=== PATIENT | male | born 1980 | race African-American/Black ===

== ENCOUNTER 2023-03-10 06:09 | Inpatient (IN) | payer MEDICAID ==
[2023-03-06 15:59] LABS: BILIRUBIN,URINE NEGATIVE (Neg); CLARITY,URINE SLIGHTLY CLOUDY (Clear); COLOR,URINE YELLOW (Yellow); GLUCOSE, URINE NEGATIVE (Neg); KETONES,URINE NEGATIVE (Neg); LEUKOCYTE ESTERASE ,URINE NEGATIVE (Neg); NITRITES, URINE NEGATIVE (Neg); OCCULT BLOOD,URINE TRACE-INTACT (Neg); PH,URINE 5.5 (4.8-8.0); PROTEIN,URINE TRACE mg/dl (Neg); UROBILINOGEN,URINE 0.2 E.U/dL (0.2-1.0)
[2023-03-06 16:00] LABS: BASOPHILS % (AUTO) 0.6 % (0-1); EOSINOPHILS # (AUTO) 0.2 X10'3 (0-0.9); EOSINOPHILS % (AUTO) 2.6 % (0-6); LYMPHOCYTES # (AUTO) 1.6 X10'3 (1.1-4.8); LYMPHOCYTES % (AUTO) 28.3 % (21-51); MEAN CORPUSCULAR HEMOGLOBIN 26.5 PG (27.0-31.0); MEAN CORPUSCULAR HGB CONC 32.7 g/dL (33.0-36.5); MEAN CORPUSCULAR VOLUME 80.8 FL (78-98); MONOCYTES # (AUTO) 0.5 X10'3 (0-0.9); MONOCYTES % (AUTO) 8.3 % (2-12); NEUTROPHILS # (AUTO) 3.5 X10'3 (1.8-7.7); NEUTROPHILS % (AUTO) 60.2 % (42-75); PRE OP HEMATOCRIT 43.3 % (42.0-52.0); PRE OP HEMOGLOBIN 14.2 g/dL (14.0-17.9); PRE OP PLATELET COUNT 224 X10'3 (140-440); PRE OP WHITE BLOOD COUNT 5.8 10'3 (4.8-10.8); RED BLOOD COUNT 5.35 X10'6 (4.70-6.10); RED CELL DISTRIBUTION WIDTH 15.2 % (11.5-14.5); UA COLLECTION TYPE CLN CATCH MIDSTREAM
[2023-03-06 16:18] LABS: MUCUS STRANDS FEW /LPF (Neg); SQUAMOUS EPITHELIAL CELL,UR MODERATE /LPF (FEW)
[2023-03-06 16:19] LABS: BACTERIA,URINE FEW /HPF (Neg); RBC,URINE 0-2 /HPF (0-2); WBC,URINE 0-4 /HPF (0-4)
[2023-03-06 16:20] LABS: ALKALINE PHOSPHATASE 99 IU/L (46-116); BLOOD UREA NITROGEN 11 MG/DL (7-18); BUN/CREATININE RATIO 8.8 (10.0-20.0); CALCIUM 9.6 MG/DL (8.5-10.1); CHLORIDE 103 MMOL/L (99-107); CREATININE 1.25 MG/DL (0.60-1.10); PRE OP ALT 23 U/L (30-65); PRE OP ANION GAP 8 (8-16); PRE OP AST 16 U/L (10-37); PRE OP BILIRUB, TOTAL 0.3 MG/DL (0.0-1.0); PRE OP GLUCOSE 110 MG/DL (70-104); PRE OP POTASSIUM 3.8 MMOL/L (3.4-5.1); PRE OP SODIUM 138 MMOL/L (135-145); TOTAL CARBON DIOXIDE 27.1 MMOL/L (24-32); eGFR 77 ML/MIN
[2023-03-10] VITALS (22 sets, daily range): BP systolic 121–165; BP diastolic 65–89; PULSE 67–98; RESP 14–28; TEMP 97.8–98.3; O2SAT 80–100
[~2023-03-10] VITALS: Ht 175.3 cm; Wt 163.1 kg
[~2023-03-10 06:09] MED LIST: ALLO300T35 PO; AMLO2.5T2 PO; ATOR-2 PO; LISI20TA28 PO; LORA10TA7 PO; PANT-47 PO; ceFAZolin inj. 3,000 MG in normal saline 100ml IV soln 100 ML IV ONE; cefazolin 2gm/D5W 100mL 100 ML IV ONE; famotidine 20mg tablet PO ONE
[2023-03-10] MEDS: ringers solution, lacted 1,000 ML IV SCH ×2 (06:40→16:02)
[2023-03-10] MEDS ORDERED: cloNIDine hcl/PF 100mcg/ml inj ONE (08:16)
[2023-03-10] MEDS ORDERED: midazolam 1 mg/ML 2ml injection ONE (08:21)
[2023-03-10] MEDS ORDERED: ondansetron/PF 4mg/2ml inj ONE (08:23)
[2023-03-10] MEDS ORDERED: LIDOcaine 1%/PF 5ML 10 MG/ML VIAL ONE (08:23)
[2023-03-10] MEDS ORDERED: rocuronium 10mg/ml inj IV ONE (08:23)
[2023-03-10] MEDS ORDERED: propofol inj 20 ML IV ONE (08:23)
[2023-03-10] MEDS ORDERED: fentaNYL /PF 50mcg/ml 5ml ampule ONE (08:23)
[2023-03-10] MEDS ORDERED: dexamethasone sod phosphate 4mg/ml inj. ONE (08:23)
[2023-03-10] MEDS ORDERED: glycopyrrolate 0.2mg/ml inj ONE (08:25)
[2023-03-10] MEDS ORDERED: neostigmine methylsulfate 1 MG/ML 10ml vial ONE (08:25)
[2023-03-10] MEDS ORDERED: bacitracin 15gm ointment TP ONE ×2 (09:03→11:41)
[2023-03-10] MEDS ORDERED: BUPIVAcaine/PF 2.5 mg/ml (0.25%) 30ml vial ONE (09:03)
[2023-03-10] MEDS ORDERED: ondansetron/PF 4mg/2ml inj IV PRN ×2 (09:05→12:55)
[2023-03-10] MEDS ORDERED: proCHLORperazine 10 MG/2 ml inj IV PRN (09:05)
[2023-03-10] MEDS ORDERED: meperidine/PF 25mg/ml syringe IV PRN ×3 (09:05)
[2023-03-10] MEDS ORDERED: ringers solution, lacted 1,000 ML IV SCH (09:05)
[2023-03-10] MEDS ORDERED: morphine 4 MG/ML inj SYRINge IV PRN (09:05)
[2023-03-10] MEDS ORDERED: morphine 2 MG/ML inj. syringe IV PRN (09:05)
[2023-03-10] MEDS ORDERED: sevoflurane 250ml liquid IH ONE (09:15)
[2023-03-10] MEDS ORDERED: albuterol 60 PUFF/8GM Inhaler (90mcg/1 puff) IH ONE (09:15)
[2023-03-10] MEDS ORDERED: ketamine 50mg/5ml syringe ONE (10:13)
[2023-03-10] MEDS ORDERED: acetaminophen 1,000mg/100ml IV 100 ML IV ONE (11:01)
[2023-03-10] MEDS ORDERED: morphine 4 MG/ML inj SYRINge IV ONE (12:15)
[2023-03-10] MEDS ORDERED: diphenhydrAMINE 25mg capsule PO PRN (12:55)
[2023-03-10] MEDS ORDERED: naloxone 0.4 mg/ml inj IV PRN (12:55)
[2023-03-10] MEDS ORDERED: acetaminophen 325mg tablet PO PRN (12:55)
--- NOTE | 2023-03-10 13:00 | NUR ---
Received from OR via HOSPITAL BED, accompanied by Anesthesiologist DR. OSWALD and report given by Anesthesiolgist. RIGHT HAND 20G PIV INFUSING PER ORDER. REQUIRING 10L MASK, DECREASED SATURATIONS. DENIES PAIN. PER DR. OSWALD ORDERED TO GIVE DUONEB. RT CONTACTED AFTER MEDICATION ORDERED. PATIENT TITRATED TO 8L MASK. LEFT LEG TOES APPEAR PINK WITH GOOD CAP REFILL.
[2023-03-10] MEDS ORDERED: ipratropium/albuterol 3ml nebule NEB PRN (13:05)
--- NOTE | 2023-03-10 14:20 | NUR ---
PATIENT TAKEN TO ORTHO FLOOR 4024A WITH ALL BELONGINGS AND HOOKED UP TO ALL MONITORS IN ROOM AND REPORT GIVEN TO BATOOL Pedraza WHO HAS TAKEN OVER PATIENT CARE. , CHRISTINE, AT BEDSIDE.
--- NOTE | 2023-03-10 15:01 | NUR ---
IN REGARD TO "ADMIT ORDERS", DR. FOURNIER WROTE ADMIT FOR RLE, PATIENT IS A LLE SURGERY.
--- NOTE | 2023-03-10 15:45 | NUR ---
Patient in room ORTHO 4024. I have received report from Karrie LEVINE and had the opportunity to ask questions and assume patient care.
[2023-03-10] MEDS: ceFAZolin inj. 1,000 MG in dextrose 5%-water 50ml 50 ML IV SCH (16:05)
--- NOTE | 2023-03-10 18:19 | NUR ---
Problems reprioritized. Patient report given, questions answered & plan of care reviewed with Reta LEVINE.
[2023-03-10] MEDS: docusate sod 100mg capsule PO SCH (19:46)
[2023-03-10] MEDS: HYDROcodone/acetaminophen 10/325mg tab PO PRN (19:49)
[2023-03-11] VITALS (8 sets, daily range): BP systolic 106–150; BP diastolic 60–88; PULSE 70–85; RESP 15–18; TEMP 97.7–98.6; O2SAT 93–98
[2023-03-11] MEDS: ceFAZolin inj. 1,000 MG in dextrose 5%-water 50ml 50 ML IV SCH (00:15)
[2023-03-11] MEDS: HYDROcodone/acetaminophen 10/325mg tab PO PRN ×4 (00:25→17:39)
--- NOTE | 2023-03-11 05:47 | NUR ---
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
--- NOTE | 2023-03-11 07:36 | NUR ---
Report received from Mara LEVINE in the ER Addendum: 03/11/23 at 1142 by Sheri Reese RN Wrong patient charted on
[2023-03-11] MEDS: docusate sod 100mg capsule PO SCH ×2 (07:50→20:00)
[2023-03-12] VITALS (7 sets, daily range): BP systolic 134–153; BP diastolic 70–90; PULSE 71–87; RESP 16–20; TEMP 98–98.2; O2SAT 4–96
[2023-03-12] MEDS: HYDROcodone/acetaminophen 10/325mg tab PO PRN ×4 (00:08→18:43)
--- NOTE | 2023-03-12 03:08 | NUR ---
Student documentation: I have reviewed and agree with assessment performed and documented by CAROL Nova Addendum: 03/12/23 at 2300 by Mansi Puga RN LIFT TRUCK MECHANIC DOCUMENTATION WAS REVIEWED. NOT STUDENT DOCUMENTATION
--- NOTE | 2023-03-12 06:37 | NUR ---
I have received report from Kieran TUBBS and had the opportunity to ask questions and assume patient care.
[2023-03-12] MEDS: docusate sod 100mg capsule PO SCH ×2 (08:13→20:00)
--- NOTE | 2023-03-12 09:05 | NUR ---
called dr. sanchez at [phone] about restarting the patient's home blood pressure medications due to the patient having elevated blood pressure, i was only able to leave a message for dr. sanchez, no new orders at this time
[2023-03-12] MEDS: amLODIPine 5mg tablet PO SCH (09:35)
[2023-03-12] MEDS: lisinopril 20mg tablet PO SCH (09:35)
--- NOTE | 2023-03-12 12:26 | NUR ---
Order to [facility] patient received from Dr. Borrego with [facility].
--- NOTE | 2023-03-12 18:23 | NUR ---
Report given to Mansi LEVINE
--- NOTE | 2023-03-12 18:30 | NUR ---
Patient in room ORTHO 4024. I have received report from SOREN and had the opportunity to ask questions and assume patient care.
[2023-03-13] MEDS: HYDROcodone/acetaminophen 10/325mg tab PO PRN ×3 (00:49→19:33)
--- NOTE | 2023-03-13 06:05 | NUR ---
Problems reprioritized. Patient report given, questions answered & plan of care reviewed with SOREN.
[2023-03-13 06:27] VITALS: BP 153/74; PULSE 82; RESP 17; TEMP 98.1; O2SAT 96
--- NOTE | 2023-03-13 06:32 | NUR ---
Report received from NOC Shift.
[2023-03-13] MEDS: docusate sod 100mg capsule PO SCH ×2 (08:29→19:34)
[2023-03-13 08:30] VITALS: RESP 18
[2023-03-13] MEDS: lisinopril 20mg tablet PO SCH (08:30)
[2023-03-13] MEDS: amLODIPine 5mg tablet PO SCH (08:30)
[2023-03-13 10:00] VITALS: BP 163/83; PULSE 86; RESP 18; TEMP 97.9; O2SAT 95
[2023-03-13 18:00] VITALS: BP 140/89; PULSE 78; RESP 18; TEMP 99.4; O2SAT 97
--- NOTE | 2023-03-13 18:06 | NUR ---
Report to Kieran TUBBS
--- NOTE | 2023-03-13 19:06 | NUR ---
Received pt report from Sheri LEVINE and assumed pt care
[2023-03-13 22:00] VITALS: BP 127/70; PULSE 79; RESP 18; TEMP 98.2; O2SAT 94
[2023-03-14] MEDS: HYDROcodone/acetaminophen 10/325mg tab PO PRN ×2 (01:31→08:35)
[2023-03-14 06:00] VITALS: BP 127/70; PULSE 79; RESP 18; TEMP 97.3; O2SAT 94
--- NOTE | 2023-03-14 06:26 | NUR ---
Report to Yadi LEVINE Addendum: 03/14/23 at 0630 by Kieran Cortez LVN CORRECTION: report to RENETTA TUBBS
--- NOTE | 2023-03-14 08:00 | NUR ---
I have reviewed and agree with interventions, assessments, and documentation by Radha Bernstein LVN.
[2023-03-14 08:35] VITALS: RESP 17
[2023-03-14 08:36] VITALS: BP_SYST 127; PULSE 78
[2023-03-14] MEDS: lisinopril 20mg tablet PO SCH (08:36)
[2023-03-14] MEDS: amLODIPine 5mg tablet PO SCH (08:36)
[2023-03-14] MEDS: docusate sod 100mg capsule PO SCH (08:39)
== END 2023-03-14 10:40 | disposition home or self-care (01) | DRG 314 ==
LOC: PAS IN 06:09 → ORTHO 4S 14:00
PROVIDERS: ADMIT Podiatrist Foot & Ankle Surgery; ATTEND Podiatrist Foot & Ankle Surgery
PROC: 0LBT0ZZ Excision of Left Ankle Tendon, Open Approach (ICD-10-PCS; 2023-03-10)
PROC: 0MQR4ZZ Repair Left Ankle Bursa and Ligament, Percutaneous Endoscopic Approach (ICD-10-PCS; 2023-03-10)
PROC: 3E0T3BZ Introduction of Anesthetic Agent into Peripheral Nerves and Plexi, Percutaneous Approach (ICD-10-PCS; 2023-03-10)
PROC: 0LS Tendons, Reposition (ICD-10-PCS; 2023-03-10)
PROC: 0QBM0ZZ Excision of Left Tarsal, Open Approach (ICD-10-PCS; principal; 2023-03-10 09:15)
DX: M76.72 Peroneal tendinitis, left leg (principal); M21.42 Flat foot [pes planus] (acquired), left foot; M76.822 Posterior tibial tendinitis, left leg; M25.373 Other instability, unspecified ankle; M65.862 Other synovitis and tenosynovitis, left lower leg
CPT/HCPCS: 36415; 73620; 76000; 80053; 81001; 82948; 85025; 93005; 94640; 94760; 97110; 97116; 97162; 97530; 97535; A4215; A4615; A4618; A6222; A6223; A6449; A7000; C1713; C1776; G0378; J0131; J0690; J0735; J1100; J2250; J2270; J2405; J2704; J2710; J3010; J3490; J7060; J7120